=== PATIENT | male | born 2005 | race African-American/Black ===

== ENCOUNTER 2024-10-24 17:07 | Emergency (ER) | payer BC, SELFPAY ==
[2024-10-24 17:23] VITALS: BP 141/87; PULSE 74; RESP 14; TEMP 37.1; O2SAT 100
--- NOTE | 2024-10-24 18:07 | ED.MALEGU ---
HPI - Male Genitourinary General Chief complaint: Urogenital-Male Stated complaint: STI check Time Seen by Provider: 10/24/24 17:40 Source: patient and RN notes reviewed Mode of arrival: ambulatory Limitations: no limitations History of Present Illness HPI Narrative: 19-year-old male presents Express Care complaining of STD check. Patient stated he was exposed to someone the STD. Patient is unsure when he was exposed to the STD. Patient states he is asymptomatic. Patient denies any penile discharge, painful intercourse, painful ejaculation, sores, lesions, or warts on his genitals, fevers, urinary symptoms, body aches, chills, abdominal pain, nausea, or any symptoms. Related Data Home Medications ?Medication ?Instructions ?Recorded ?Confirmed ?Last Taken ?Type No Home Medications 10/24/24 10/24/24 Unknown History Allergies Allergy/AdvReac Type Severity Reaction Status Date / Time No Known Allergies Allergy Verified 10/24/24 17:51 Review of Systems Review of Systems: CONSTITUTIONAL: Denies fever, chills, or sweats. EYES: Denies visual changes, redness, or discharge. ENT: Denies rhinorrhea, congestion, sore throat, or otalgia. CARDIOVASCULAR: Denies chest pain, palpitations, or edema. RESPIRATORY: Denies cough or dyspnea. GASTROINTESTINAL: Denies abdominal pain, nausea, vomiting, or diarrhea. GENITOURINARY: Denies dysuria, hematuria, penile discharge, painful ejaculation, painful intercourse, testicular/scrotal pain, testicular/scrotal swelling. SKIN: Denies rash or itching. MUSCULOSKELETAL: Denies back pain, joint pain, or myalgia. NEUROLOGIC: Denies headache, numbness, or weakness. PSYCHIATRIC: Denies anxiety or depression. All other systems reviewed are negative, except as documented in HPI. PMFSH Comments At the time of my signature, I reviewed and agree with the nursing past medical, surgical, social, and family history. There is no relevant family history pertinent to the patient complaint. Exam Narrative: GENERAL: This is a well-nourished, well-developed adult, in no apparent distress. They are non ill-appearing, nontoxic appearing. HEAD: normocephalic, atraumatic. EYES: Sclera clear/white. Conjunctiva normal. Vision is grossly intact. Extraocular movements intact EARS: External ears normal, Hearing grossly intact. NOSE: External nose normal THROAT: Mucous membranes moist, NECK: Neck supple CARDIOVASCULAR: Regular rate and rhythms. RESPIRATORY: Respiratory rate normal, respiratory effort nonlabored, no respiratory distress GENITOURINARY: Patient declined genital exam. SKIN: warm, Dry, intact with no suspicious lesions or rash, good texture and turgor. NEURO: awake, alert, and oriented to person, place and time. There were no obvious focal neurologic abnormalities. EXTREMITIES: No edema noted. Course Course Emergency Course: Portions of this record may have been created with voice recognition software Level of Care: Express Care Visit Vital Signs Vital signs: Vital Signs Temperature 98.7 F 10/24/24 17:23 Pulse Rate 74 10/24/24 17:23 Respiratory Rate 14 10/24/24 17:23 Blood Pressure 141/87 H 10/24/24 17:23 Pulse Oximetry 100 10/24/24 17:23 Oxygen Delivery Room Air 10/24/24 17:23 Temperature 98.7 F 10/24/24 17:23 Pulse Rate 74 10/24/24 17:23 Respiratory Rate 14 10/24/24 17:23 Blood Pressure 141/87 H 10/24/24 17:23 Pulse Oximetry 100 10/24/24 17:23 Oxygen Delivery Room Air 10/24/24 17:23 Reviewed MDM - Male Genitourinary MDM Narrative Medical decision making narrative: Patient is asymptomatic from his exposure to STDs. Patient denies any urinary symptoms. Chlamydia, gonorrhea, Trichomonas are pending. Patient has elected to go ahead and treat for chlamydia and Trichomonas, will wait gonorrhea results prior to treating. Will send over doxycycline and Flagyl to his pharmacy. Patient declined a genital exam. Discussed physical exam findings. Advised supportive measures and signs/symptoms to go to the ER. Pt is appropriate for outpt treatment and f/u. Differential Diagnosis Differential diagnosis: Likely urinary tract infection, urethritis and other (STI) Critical Care Time Critical Care Time Critical Care Time: No Discharge Plan Discharge Clinical Impression: Possible exposure to STI Patient Disposition: Home Condition: Stable Instructions: Antibiotic Form, Sexually Transmitted Diseases (ED), Safe Sex Practices (ED) Additional Instructions: You will be contacted about your results for chlamydia, gonorrhea, and Trichomonas. Have elected elected to prophylactically be treated for chlamydia and Trichomonas today. Take the antibiotics at as directed finished coursing to start to feel better. Please wear sunscreen while taking doxycycline if you are going to be outside. Please remain abstinent while on treatment. If you would like further STI treatment you may go to [facility] or [facility] for further testing. Follow-up PCP in 1 week. If you Develops any fevers, testicular pain or swelling, or any other concerns please go to the ER immediately. Patient Language: Congolese Prescriptions: New doxycycline monohydrate 100 mg capsule 100 mg PO BID 7 Days Qty: 14 0RF metronidazole 500 mg tablet 2,000 mg PO ONCE 1 Days Qty: 4 0RF No Action No Home Medications Follow-up/Referrals: PHYSICIAN,SHEAR ASSEMBLER [Primary Care Provider] - Time of Disposition: 17:48
[2024-10-24 20:30] LABS: Trichomonas Vag PCR NOT DETECTED (NOT DETECTE)
[2024-10-24 20:53] LABS: Chlamydia trachomatis DETECTED (NOT DETECTE); Neisseria gonorrhoeae PCR NOT DETECTED (NOT DETECTE)
== END 2024-10-24 17:58 | disposition home or self-care (01) ==
DX: Z11.3 Encounter for screening for infections with a predominantly sexual mode of transmission (principal)
CPT/HCPCS: 87491; 87591; 87661; 99203; G0463